=== PATIENT | male | born 1965 | race American Indian/Alaskan Native ===

== ENCOUNTER 2017-03-22 08:38 | Emergency (ER) | payer BC, OTHER ==
[2017-03-22] MEDS ORDERED: MOTRIN PO ONE (11:24)
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
--- NOTE | 2017-03-22 12:43 | XRay Report ---
Cervical spine 3 views: History: Cervical pain. Findings: Normal height of vertebral bodies. Minimal decrease in height of C4-C5 and C5-C6. Sclerotic articular surfaces with early cervical spondylosis. Normal prevertebral soft tissue. No fracture. Impression: Mild cervical spondylosis.
[2017-03-22 13:31] VITALS: BP 162/84
== END 2017-03-22 13:30 | disposition home or self-care (01) ==
LOC: ED 08:38
DX: S46.912A Strain of unspecified muscle, fascia and tendon at shoulder and upper arm level, left arm, initial encounter (principal); S39.012A Strain of muscle, fascia and tendon of lower back, initial encounter; S13.4XXA Sprain of ligaments of cervical spine, initial encounter; M47.812 Spondylosis without myelopathy or radiculopathy, cervical region; I10 Essential (primary) hypertension; E11.9 Type 2 diabetes mellitus without complications; Z79.4 Long term (current) use of insulin; V89.2XXA Person injured in unspecified motor-vehicle accident, traffic, initial encounter; Y92.488 Other paved roadways as the place of occurrence of the external cause; Y93.89 Activity, other specified; Y99.8 Other external cause status
CPT/HCPCS: 72040; 72100

== ENCOUNTER 2018-09-01 06:27 | Emergency (ER) | payer OTHER ==
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
[2018-09-01] MEDS ORDERED: TYLENOL PO ONE (09:48)
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
[2018-09-01 12:40] VITALS: BP 142/92
== END 2018-09-01 12:38 | disposition home or self-care (01) ==
LOC: ED 06:27
DX: M25.512 Pain in left shoulder (principal); M54.5 Low back pain; M54.2 Cervicalgia; I10 Essential (primary) hypertension; E11.9 Type 2 diabetes mellitus without complications; Z79.4 Long term (current) use of insulin; V49.49XA Driver injured in collision with other motor vehicles in traffic accident, initial encounter; Y93.89 Activity, other specified; Y92.410 Unspecified street and highway as the place of occurrence of the external cause; Y99.8 Other external cause status
CPT/HCPCS: 72040; 72100

== ENCOUNTER 2019-03-07 16:49 | Emergency (ER) | payer SELFPAY ==
[2019-03-07] MEDS ORDERED: ASPIRIN 325 MG TAB PO ONE (17:15)
[2019-03-07] MEDS ORDERED: LEVALBUTEROL 0.63 MG/3 ML NEBU IH ONE (17:53)
[2019-03-07] MEDS ORDERED: IPRATROPIUM 0.02% NEBU 2.5 ML IH ONE (17:53)
[2019-03-07] MEDS ORDERED: BENZONATATE 100 MG CAP PO ONE (17:53)
[2019-03-07] MEDS ORDERED: HYDROcodone/ACETAMINOPHEN 5-325 MG TAB PO ONE (17:53)
[2019-03-07] MEDS ORDERED: ONDANSETRON 4 MG/2 ML INJ IV ONE (17:56)
--- NOTE | 2019-03-07 17:58 | XRay Report ---
CHEST AP INDICATION / CLINICAL INFORMATION: Chest Pain. COMPARISON: None available. FINDINGS: Low lung volumes with elevation of the diaphragm and mild bibasilar platelike atelectasis. Otherwise, the lungs are clear. No appreciable pleural fluid. No pneumothorax. Heart size is normal. IMPRESSION: Low lung volumes with mild basilar atelectasis. Signer Name: J Carlos Pino MD Signed: 03/07/2019 5:53 PM Workstation Name: [id number]
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
[2019-03-07] MEDS ORDERED: SODIUM CHLORIDE 0.9% 250ML 250 ML IV ONE (18:00)
[2019-03-07 19:01] LABS: INR 0.91 (0.87-1.13)
[2019-03-07 19:06] LABS: BUN/Creatinine Ratio 7; Blood Urea Nitrogen 14 mg/dL (9-20); Calcium 8.7 mg/dL (8.4-10.2); Hemolysis Index 4
[2019-03-07] MEDS ORDERED: INSULIN REGULAR, HUMAN 100 UNITS/1 ML IV ONE (19:54)
[2019-03-07] MEDS ORDERED: METOPROLOL TARTRATE 50 MG TAB PO ONE (21:11)
[2019-03-07 22:08] VITALS: BP 140/78
[2019-03-07] MEDS ORDERED: FUROSEMIDE 40 MG/4 ML INJ IV ONE (22:21)
== END 2019-03-07 22:40 | disposition home or self-care (01) ==
LOC: ED 16:49
DX: J20.9 Acute bronchitis, unspecified (principal); I10 Essential (primary) hypertension; Z79.4 Long term (current) use of insulin; Z98.890 Other specified postprocedural states
CPT/HCPCS: 71045; 80048; 82962; 84484; 85610; 93005; 93010; 94644; J1940; J2405; J7050; 96374; 96375; J1815